=== PATIENT | male | born 1970 | race Caucasian/White ===

== ENCOUNTER 2022-07-05 17:08 | Emergency (ER) | payer OTHER | END 2022-07-05 19:30 | disposition home or self-care (01) | LOC: ER1 17:08 | DX: U07.1 COVID-19 (principal); J06.9 Acute upper respiratory infection, unspecified; I10 Essential (primary) hypertension; F17.210 Nicotine dependence, cigarettes, uncomplicated; Z88.8 Allergy status to other drugs, medicaments and biological substances; R40.2410 Glasgow coma scale score 13-15, unspecified time | CPT/HCPCS: 87081; 87880; 99283; U0002 ==